=== PATIENT | female | born 1970 | race Caucasian/White ===

== ENCOUNTER 2017-08-25 12:15 | Emergency (ER) | payer SELFPAY ==
[~2017-08-25 12:15] MED LIST: Iopamidol 370 76% 100 ML VIAL ONE; Sodium Chloride 0.9% 1,000 ML BAG ONE
[2017-08-25] MEDS ORDERED: diphenhydrAMINE HCl 50 MG/ML 1 ML VIAL ONE (12:50)
[2017-08-25] MEDS ORDERED: Ondansetron HCl/PF 4 MG/2 ML Vial ONE (12:51)
[2017-08-25] MEDS ORDERED: Ketorolac Tromethamine 30 MG/ML VIAL ONE (12:51)
[2017-08-25 13:13] LABS: ALT (SGPT) 24 U/L (8-55); AST (SGOT) 16 U/L (5-34); Alkaline Phosphatase 69 U/L (40-150); Anion Gap 15 mmol/L (10-20); BUN (Urea Nitrogen) 15 mg/dL (7.0-18.7); Bilirubin, Total 0.6 mg/dL (0.2-1.2); CK (CPK) 101 U/L (29-168); Calc. Creatinine Clearance 0 mL/min (70-130); Calcium 8.9 mg/dL (7.8-10.44); Carbon Dioxide 20 mmol/L (22-29); Chloride 105 mmol/L (98-107); Estimated GFR-MDRD 74; Globulin 3.6 g/dL (2.4-3.5); Glucose 145 mg/dL (70-105); Protein, Total 7.6 g/dL (6.0-8.3); Sodium 136 mmol/L (136-145)
[2017-08-25 13:16] LABS: Hemoglobin 13.4 g/dL (12.0-16.0); Lymphocytes 8 % (21-51); MDiff Complete? YES; Mean Corpuscular HGB CONC 33.9 g/dL (32.0-36.0); Mean Corpuscular Hemoglobin 31.1 pg (27.0-31.0); Mean Corpuscular Volume 91.6 fl (81.0-99.0); Mean Platelet Volume 7.4 fL (7.4-10.4); Monocytes 3 % (0-10); Neutrophil 77 % (42-75); PLT Morphology Comment Appears Adequate; Platelet Count 248 thou/uL (130-400); RBC Morphology Normal; Reactive Lymphocytes 12 % (0-10); White Blood Cell (WBC) Count 22.4 thou/uL (4.8-10.8)
[2017-08-25 13:17] LABS: Troponin I Less than 0.010 ng/mL (< 0.028)
--- NOTE | 2017-08-25 14:42 | RAD ---
RADIOGRAPH CHEST 1 VIEW: HISTORY: 47-year-old female for preoperative clearance. FINDINGS: There is no air space density, pulmonary edema, or pneumothorax. The lateral costophrenic angles ar e sharp. IMPRESSION: No acute pulmonary findings. yessenia [] POS: ADDI
[2017-08-25 15:39] LABS: Bilirubin Negative (Negative); Blood, Urine Trace (Negative); Glucose, Urine (Dipstick) Negative (Negative); Leukocyte Negative (Negative); Nitrite Positive (Negative); Protein, Urine (Dipstick) Negative (Neg-Trace); Urobilinogen 0.2 mg/dL (0.2-1.0)
[2017-08-25 15:40] LABS: Clarity Hazy (Clear); Specific Gravity, Urine 1.027 (1.002-1.036)
[2017-08-25 15:43] LABS: Bacteria/HPF 2+ HPF (None Seen); RBC/HPF 0-3 HPF (0-3); Squamous Epithelial 0-3 HPF (0-3); WBC/HPF 0-3 HPF (0-3)
[2017-08-25] MEDS ORDERED: metroNIDAZOLE 500 MG/100 ML BAG ONE (15:53)
[2017-08-25] MEDS ORDERED: Ciprofloxacin Lactate/D5W 400 mg/200 ml Premix ONE (15:53)
--- NOTE | 2017-08-25 15:58 | CT ---
CT ABDOMEN WITH CONTRAST CT PELVIS WITH CONTRAST: DATE: 08/25/17 TIME: 2:36 p.m. HISTORY: 47-year-old female with severe, sudden onset of right lower quadrant abdominal pain. TECHNIQUE: IV injection of iodinated contrast media: Administered Oral contrast media: Administered FINDINGS: There are numerous diverticula throughout the sigmoid colon. There is prominent fat stranding repres enting edema around the distal portion of the sigmoid colon and rectosigmoid junction. The appendix, urinary bladder, small intestine, abdominal aorta, kidneys, adrenals, pancreas, liver, and spleen, are normal. No pleural effusion. No pneumoperitoneum. There are bilateral L5 pars interarticularis d efects causing a grade II anterolisthesis of L5 on S1. Disc space narrowing at L5-S1. IMPRESSION: 1. Acute distal sigmoid colonic diverticulitis. 2. Grade II spondylolisthesis due to spondylolysis, at L5-S1. 3. Normal appendix. SAUL Prince POS: ADDI
== END 2017-08-25 16:20 | disposition short-term general hospital (02) ==
LOC: MADERS 12:15
DX: K57.32 Diverticulitis of large intestine without perforation or abscess without bleeding (principal); F17.210 Nicotine dependence, cigarettes, uncomplicated
CPT/HCPCS: 71010; 74177; 80053; 81001; 82150; 82553; 83605; 84484; 85025; 86140; 87040; 87077; 87086; 87186; 93005; 96361; 96374; 96375; J0744; J1200; J1885; J2270; J2405; J7050

== ENCOUNTER 2018-11-20 10:53 | Emergency (ER) | payer OTHER ==
[2018-11-20 12:06] LABS: Bilirubin Negative (Negative); Blood, Urine Small (Negative); Clarity Clear (Clear); Glucose, Urine (Dipstick) Negative (Negative); Leukocyte Negative (Negative); Nitrite Negative (Negative); Protein, Urine (Dipstick) Negative (Neg-Trace); Specific Gravity, Urine 1.025 (1.005-1.030); Urobilinogen 0.2 mg/dL (0.2-1.0)
[2018-11-20 12:07] LABS: Bacteria/HPF 1+ HPF (None Seen); RBC/HPF 0-3 HPF (0-3); Squamous Epithelial 0-3 HPF (0-3); WBC/HPF 0-3 HPF (0-3)
[2018-11-20] MEDS ORDERED: Ondansetron PF 4 MG/2 ML Vial ONE (12:16)
[2018-11-20 12:19] LABS: #Eosinphils 0.1 thou/uL (0.0-0.7); #Lymphocytes 1.3 thou/uL (1.20-3.40); #Monocytes 0.4 thou/uL (0.11-0.59); #Neutrophils 12.7 thou/uL (1.40-6.50); %Basophils 0.3 % (0.0-1.0); %Eosinophils 0.6 % (0.0-10.0); %Lymphocytes 8.6 % (21.0-51.0); %Monocytes 2.6 % (0.0-10.0); %Neutrophils 87.9 % (42.0-75.0); Hemoglobin 14.6 g/dL (12.0-16.0); Mean Corpuscular HGB CONC 32.1 g/dL (32.0-36.0); Mean Corpuscular Hemoglobin 30.6 pg (27.0-31.0); Mean Corpuscular Volume 95.5 fL (78.0-98.0); Mean Platelet Volume 6.6 fL (7.4-10.4); Platelet Count 249 thou/uL (130-400); RBC Distribution Width 11.5 % (11.5-14.5); Red Blood Cell (RBC) Count 4.76 mill/uL (4.20-5.40); White Blood Cell (WBC) Count 14.5 thou/uL (4.8-10.8)
[2018-11-20 12:38] LABS: ALT (SGPT) 35 U/L (8-55); AST (SGOT) 22 U/L (5-34); Albumin 4.5 g/dL (3.5-5.0); Alkaline Phosphatase 70 U/L (40-150); Anion Gap 13 mmol/L (10-20); BUN (Urea Nitrogen) 22 mg/dL (7.0-18.7); Bilirubin, Total 0.5 mg/dL (0.2-1.2); Calc. Creatinine Clearance 0 mL/min (70-130); Calcium 9.1 mg/dL (7.8-10.44); Carbon Dioxide 23 mmol/L (22-29); Chloride 105 mmol/L (98-107); Estimated GFR-MDRD 58; Glucose 133 mg/dL (70-105); Lipase 18 U/L (8-78); Potassium 4.5 mmol/L (3.5-5.1); Protein, Total 8.5 g/dL (6.0-8.3); Sodium 136 mmol/L (136-145)
[2018-11-20] MEDS ORDERED: Morphine 10 MG/ML VIAL ONE (13:12)
[2018-11-20] MEDS ORDERED: Lidocaine Viscous Sol 2% 15 ml UD Cup ONE (13:13)
[2018-11-20] MEDS ORDERED: Mag-Al Plus 1200 MG/1200 MG/120 MG/30 ML UDCUP ONE (13:13)
--- NOTE | 2018-11-20 14:09 | CT ---
ABDOMEN AND PELVIS CT WITH CONTRAST: Date: 11/20/18 COMPARISON: 08/25/17. CLINICAL INDICATION: Abdominal pain. FINDINGS: Mild nonspecific opacities are seen at the partially visualized lung bases. Low attenuation hepatic p arenchyma can be seen with hepatic steatosis. There is a contracted gallbladder. Spleen is unremarkab le. There is no acute peripancreatic inflammation. Debris-filled duodenal diverticulum is seen in the right mid abdomen. No associated inflammation. The kidneys are stable appearing without evidence of acute process. Sigmoid diverticulosis is present. No discrete evidence for acute diverticulitis withi n limitations of technique, as enteric contrast was not administered, which precludes reliable assess ment of the bowel. Mild vascular calcification is seen. Osseous structures are intact. IMPRESSION: 1. Colonic diverticulosis. 2. Findings which may reflect hepatic steatosis. correlate with liver function enzymes. 3. Duodenal diverticulum, noninflamed. POS: ADDI
== END 2018-11-20 14:32 | disposition home or self-care (01) ==
LOC: MADERS 10:53
DX: R10.9 Unspecified abdominal pain (principal); R19.7 Diarrhea, unspecified; F17.210 Nicotine dependence, cigarettes, uncomplicated
CPT/HCPCS: 74177; 80053; 81003; 81015; 83690; 85025; 93005; 96361; 96374; 96375; J2270; J2405; J7050